=== PATIENT | female | born 1985 | race Caucasian/White ===

== ENCOUNTER 2017-10-12 11:27 | Emergency (ER) | payer MEDICAID | END 2017-10-12 12:30 | disposition home or self-care (01) | LOC: FTE 11:27 → E/R 12:30 | DX: J06.9 Acute upper respiratory infection, unspecified (principal); R11.0 Nausea | CPT/HCPCS: 99284; Z7502 ==

== ENCOUNTER 2018-05-01 13:12 | Emergency (ER) | payer MEDICAID ==
[2018-05-01 14:30] LABS: ADD UMIC YES; UR ASCORBIC ACID NEGATIVE (NEGATIVE); UR BACTERIA FEW /HPF (NONE SEEN); UR BILIRUBIN (Dip) NEGATIVE (NEGATIVE); UR BLOOD (Dip) NEGATIVE (NEGATIVE); UR CLARITY CLEAR (CLEAR); UR COLOR YELLOW (YELLOW); UR GLUCOSE (Dip) NEGATIVE (NEGATIVE); UR KETONES (Dip) NEGATIVE (NEGATIVE); UR LEUKOCYTE ESTERASE (Dip) TRACE Leu/ul (NEGATIVE); UR NITRITE (Dip) NEGATIVE (NEGATIVE); UR RBC 2 /HPF (0-5); UR SPECIFIC GRAVITY (Dip) 1.019 (1.003-1.030); UR TOTAL PROTEIN (Dip) NEGATIVE (NEGATIVE); UR UROBILINOGEN (Dip) 1+ mg/dL (NEGATIVE); UR WBC 9 /HPF (0-5)
== END 2018-05-01 17:01 | disposition home or self-care (01) ==
LOC: FTE 13:12
DX: R07.9 Chest pain, unspecified (principal); R10.2 Pelvic and perineal pain
CPT/HCPCS: 71045; 76830; 76856; 81001; 81025; 87210; 87591; 93005; 99285-25

== ENCOUNTER 2018-07-11 15:33 | Emergency (ER) | payer MEDICAID ==
[2018-07-11] MEDS: KETOROLAC 60 MG INJ IM (16:42)
[2018-07-11] MEDS: ONDANSETRON (ODT) 4 MG TAB ODT (16:42)
== END 2018-07-11 17:10 | disposition home or self-care (01) ==
LOC: FTE 15:33
DX: R11.2 Nausea with vomiting, unspecified (principal); R19.7 Diarrhea, unspecified; R10.9 Unspecified abdominal pain; R51 Headache; R09.89 Other specified symptoms and signs involving the circulatory and respiratory systems; Z91.040 Latex allergy status
CPT/HCPCS: 81025; 96372; 99284-25

== ENCOUNTER 2018-10-10 13:55 | Emergency (ER) | payer MEDICAID ==
[2018-10-10 16:04] LABS: URINE BLOOD (Dip) POC 3+ (NEGATIVE); URINE GLUCOSE (Dip) POC Negative (NEGATIVE); URINE KETONES (Dip) POC Negative (NEGATIVE); URINE LEUKOCYTE EST (Dip) POC Negative (NEGATIVE); URINE NITRITE (Dip) POC Negative (NEGATIVE); URINE TOTAL PROTEIN POC Negative (NEGATIVE)
== END 2018-10-10 16:11 | disposition home or self-care (01) ==
LOC: FTE 13:55
DX: N93.9 Abnormal uterine and vaginal bleeding, unspecified (principal); R10.2 Pelvic and perineal pain; Z97.5 Presence of (intrauterine) contraceptive device; Z91.040 Latex allergy status
CPT/HCPCS: 81003; 81025; 99282